=== PATIENT | male | born 1960 | race African-American/Black ===

== ENCOUNTER → 2018-07-14 | Outpatient (CLI) | payer OTHER ==
[2014-10-15 15:02] VITALS: BP 120/81
[~2018-07-14] MED LIST: Amoxicillin/Potassium Clav PO; CELE200C PO; CEPH-264 PO; CIPR500T94 PO; DOCU-109 PO; NAPR220T70 PO; OXYC1TAB15 PO; WARF-78 PO
--- NOTE | 2018-07-14 08:55 | RAD ---
Examination: Ultrasound left parotid History: History of left parotid mass COMPARISON: None available. Findings/ impression: There is a 1.6 x 1.3 x 1.3 cm hypoechogenic lesion identified in the left parotid region with minimal vascular flow within could be a left parotid solid mass or abnormal lymph node. Cross-sectional imaging with CT with IV contrast can be considered if clinically feasible for further evaluation. Electronically signed by: Jhonathan Cotter MD (07/14/2018 8:50 AM) [id number]
== END | disposition home or self-care (01) ==
LOC: US 07:10
PROVIDERS: ATTEND Nurse Practitioner Family
DX: K11.8 Other diseases of salivary glands (principal)
CPT/HCPCS: 76881

== ENCOUNTER 2018-08-30 07:05 | Outpatient (CLI) | payer OTHER ==
[~2018-08-30] VITALS: Ht 175.3 cm; Wt 95.3 kg
[2018-08-30 07:30] VITALS: BP 146/86
[2018-08-30 07:45] LABS: BASO # 0.1 x10^3/uL (0.0-0.2); BASO % 2 % (0-3); EOS # 0.2 x10^3/uL (0.0-0.7); EOS % 5 % (0-3); HEMATOCRIT 44.8 % (39.0-53.0); HEMOGLOBIN 14.8 g/dL (13.0-17.5); LYMPH # 0.9 x10^3/uL (1.0-4.8); LYMPH % 25 % (24-48); MEAN CORPUSCULAR HEMOGLOBIN 29 pg (25-35); MEAN CORPUSCULAR HGB CONC 33 g/dL (31-37); MEAN CORPUSCULAR VOLUME 87 fL (79-100); MONO # 0.3 x10^3/uL (0.0-1.1); MONO % 9 % (0-9); NEUT # 2.2 x10^3uL (1.8-7.7); NEUT % 60 % (31-73); PLATELET COUNT 205 x10^3/uL (140-400); RED BLOOD COUNT 5.15 x10^6/uL (4.30-5.70); WHITE BLOOD COUNT 3.7 x10^3/uL (4.0-11.0)
[2018-08-30 08:10] LABS: PROTHROMBIN TIME PATIENT 13.5 SEC (11.7-14.0)
[2018-08-30] MEDS ORDERED: LIDOCAINE WITH 8.4% SOD BICARB 3 ML DISP.SYRIN. ONE (08:20)
[2018-08-30] MEDS ORDERED: LIDOCAINE WITH 8.4% SOD BICARB 3 ML DISP.SYRIN. INJ ONE (08:45)
[2018-08-30 09:00] VITALS: BP 156/90
[2018-08-30 09:15] VITALS: BP 154/86
[2018-08-30 09:30] VITALS: BP 151/86
[2018-08-30 09:45] VITALS: BP 152/86
[2018-08-30] MEDS ORDERED: ACET325T9 PO (10:04)
--- NOTE | 2018-08-30 10:36 | NUR ---
Discharge Note: PONCE MARY Discharge instructions and discharge home medications reviewed with Spouse and a copy given. All questions have been answered and understanding verbalized. The following instructions and handouts were given: Needle biopsy care and signs and symptoms of infection. Discontinued lines and drains: right hand PIV, dressing clean dry intact. Patient discharged to home with via private vehicle. Discussed blood pressure and the need to follow up with PCP regarding blood pressure management. Patient and both verbalized understanding.
--- NOTE | 2018-08-31 11:54 | RAD ---
Ultrasound-guided biopsy, left parotid mass 08/30/2018 Indication: Left parotid mass Discussion: The risks and benefits of the procedure were discussed the patient. Informed consent was obtained. A timeout procedure was performed. Ultrasound evaluation demonstrates a round hypoechoic mass with some peripheral calcification the left parotid gland. Mass measures approximately 2 cm in maximal diameter. The overlying skin was prepped and draped using sterile barrier technique. 1% lidocaine was administered for local anesthesia. Under CT guidance fine-needle aspiration performed in 4 passes through the nodule. Scant cellularity noted by cardiopulmonary technologist present. A 20-gauge core biopsy sample was therefore obtained. Manual pressure was held. The patient tolerated the procedure without immediate complication. Impression: Fine-needle aspiration, and single 20-gauge core biopsy, left parotid mass
--- NOTE | 2018-08-31 16:07 | PATHOLOGY ---
[facility] Accession Number: [id number] . 01 Material submitted: . LEFT PAROTID MASS BIOPSY . 01 Clinical history: . Left parotid mass, FNA X4 passes . 02 Diagnosis: Left parotid mass, needle biopsies: - Pleomorphic adenoma. See comment. . (JPM:mm; 08/31/2018) [facility]/08/31/2018 . 02 Comment: Sections of the left parotid mass needle biopsy reveal segments of fibrous tissue and a benign parotid gland neoplasm. The latter is composed of bland epithelial cells which form tubules and are present in small nests and anastomosing strands within a myxochondroid stroma. The morphologic findings are supportive of the diagnosis of a pleomorphic adenoma. There is no evidence of malignancy within the biopsy. However, I cannot be certain wheher or not the findings are office machines sales representative of the entire lesion. Correlate clinically. . (JPM:mm; 08/31/2018) . 02 Electronically signed: . Braeden Jacob MD, Pathologist NPI- [id number] . 01 Gross description: . The specimen is received in formalin, labeled "Lucio Del Toro, left parotid", are two cat-white needle cores measuring 0.7 cm and 0.3 cm in length and less than 0.1 cm in diameter. The content of the container is filtered into a biopsy bag. All is submitted for microscopy as A1. ([facility]; 08/30/2018) [facility]S . 02 Pathologist provided ICD-10: D11.0 . 02 CPT . 377393 Specimen Comment: A courtesy copy of this report has been sent to Specimen Comment: [phone], , . Specimen Comment: Report sent to ,DR COSTA / DR PAT Performed at: [address] [facility] [address], [place], [place] [id number] MD Sy Sullivan MD Phone: [phone] Performed at: 02 [facility] [address] [place], [place] [id number] MD Braeden Jacob MD Phone: [phone]
--- NOTE | 2018-08-31 17:07 | PATHOLOGY ---
Note [facility] Accession Number: [id number] TESTS RESULT FLAG UNITS REF RANGE LAB Clinician Provided Cytology Information No. of containers..01 Other (Miscellaneous) Source: LT PAROTID MASS DIAGNOSIS: LT PAROTID MASS NEGATIVE FOR MALIGNANT CELLS. CLUSTERS OF BENIGN EPITHELIOD CELLS WITH FOCAL MYXOID STROMA SUSPICIOUS FOR PLEOMORPHIC ADENOMA. THIS EVALUATION INCLUDES EXAMINATION OF A CELL BLOCK. Signed out by: 02 Braeden Jacob MD, Pathologist NPI- [id number] Performed by: Lila Calhoun, Hot Strip Mill Inspector ([facility]) Gross description: 01 30ML, COLORLESS, CLOUDY /LCS FLAG LEGEND: L-Low Normal,H-High Normal,LL-Alert Low,HH-Alert High <-Panic Low,>-Panic High,A-Abnormal,AA-Critical Abnormal Performed at: [address] [place] [address] Sy Sullivan MD, 02 [facility] [address] [place] [address] Braeden Jacob MD, Specimen Comment: A courtesy copy of this report has been sent to Specimen Comment: [phone]. Specimen Comment: Report sent to Specimen Comment: A duplicate report has been generated due to demographic updates. Performed at: [address], [place], [place] [id number] MD Sy Sullivan MD Phone: [phone]
== END 2018-08-30 10:30 | disposition home or self-care (01) ==
LOC: INTRAD 07:05
PROVIDERS: ATTEND Nurse Practitioner Family
DX: D11.0 Benign neoplasm of parotid gland (principal); Z79.899 Other long term (current) drug therapy; Z79.01 Long term (current) use of anticoagulants
CPT/HCPCS: 10005; 36415; 42400; 76942; 85025; 85610; 88173; 88305

== ENCOUNTER 2018-10-04 08:19 | Emergency (ER) | payer OTHER ==
[~2018-10-04] VITALS: Ht 175.3 cm; Wt 95.7 kg
[~2018-10-04 08:19] MED LIST changes: +ACET325T9 PO
[2018-10-04 09:00] VITALS: BP 124/73
[2018-10-04] MEDS ORDERED: CYCLOBENZAPRINE 10 MG TABLET. PO ONE (10:00)
[2018-10-04] MEDS ORDERED: IBUPROFEN 400 MG TABLET. PO ONE (10:00)
[2018-10-04] MEDS ORDERED: CYCL10TA2 PO (10:02)
[2018-10-04] MEDS ORDERED: DICL50TA4 PO (10:02)
--- NOTE | 2018-10-04 10:02 | PHYS DOC ---
Past Medical History Past Medical History: Arthritis, Hypertension Past Surgical History: Knee Replacement Alcohol Use: None Drug Use: None Adult General Chief Complaint Chief Complaint: UPPER EXTREMITY PAIN HPI HPI Patient is a 58-year-old male who presents to the emergency department for evaluation. He states yesterday at work, at about 7 PM, he began experiencing some pain in the left side of his neck, radiating down towards his left shoulder and down his entire left arm. Movements of his neck, as well as elevating his left shoulder, seems to worsen his pain. He has not had any numbness or weakness, paresthesias, headache, or vision difficulties. He denies any chest pain or shortness of breath. He states he had a similar episode after abruptly turning his neck at work a few days ago, but states that with some rest that improved, but this episode since beginning yesterday evening and has been persistent. He does not have any definite discrete injury that he can attribute his current pain 2. Other than as stated above there are no alleviating or exacerbating factors to his symptoms. Review of Systems Review of Systems Constitutional: Denies fever or chills [] Eyes: Denies change in visual acuity, redness, or eye pain [] HENT: Denies nasal congestion or sore throat [] Respiratory: Denies cough or shortness of breath [] Cardiovascular: The patient denies any shortness of breath, chest pain, palpitations, or orthopnea[] GI: Denies abdominal pain, nausea, vomiting, bloody stools or diarrhea [] : Denies dysuria or hematuria [] Musculoskeletal: Denies back pain or joint pain, except as noted in the history of present illness [] Integument: Denies rash or skin lesions [] Neurologic: Denies headache, focal weakness or sensory changes [] Allergies Allergies Allergies Coded Allergies Type Severity Reaction Last Updated Verified No Known Drug Allergies 10/10/14 No Physical Exam Physical Exam PHYSICAL EXAM: CONSTITUTIONAL: Well developed, well nourished HEAD: normocephalic, atraumatic EENT: PERRL, EOMI. Conjunctivae normal color, sclerae non-icteric; moist mucous membranes. NECK: Supple, non-tender; no meningismus. There are no carotid bruits. LUNGS: Lungs CTA, breathing even and unlabored. Normal air movement. HEART: Regular rate and rhythm, no murmur CHEST: No deformity; non-tender ABDOMEN: The abdomen is soft, and non-tender, no masses or bruits. EXTREM: Normal ROM; no deformity, no calf tenderness. Normal pulses palpable in all extremities. There is no pedal edema. There is a strong left radial pulse. SKIN: No rash; no diaphoresis NEURO: Alert; normal speech and cognition; CN's grossly intact; strength grossly intact without focal deficit. 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 Symmetrical bilaterally. BACK: No CVA TTP. MUSCULOSKELETAL: There is mild tenderness to palpation of the musculature of the left lateral neck, trapezius, and left shoulder diffusely. Left shoulder is limited to about 50% of full secondary to pain, mostly in abduction, rotation is relatively nonpainful. Current Patient Data Vital Signs Vital Signs Date Time Temp Pulse Resp B/P (MAP) Pulse Ox O2 Delivery O2 Flow Rate FiO2 10/04/18 08:25 98.2 68 18 139/85 (103) 98 Room Air 98.2 EKG EKG Normal sinus rhythm at a rate of 59 beats for minute, left axis deviation, normal intervals. There are no acute ischemic ST/T changes.[] Radiology/Procedures Radiology/Procedures [] Course & Med Decision Making Course & Med Decision Making Patient's clinical symptoms are suggestive of a muscle strain, possibly in his neck or shoulder area. Radicular pain from a herniated disc is certainly on the differential as well. I will treat the patient initially conservatively with muscle relaxer and anti-inflammatory medication, I discussed importance of close follow-up, and possible need for imaging including an MRI of his cervical spine if symptoms persist, the need for close PCP follow-up, and return precautions . Medication precautions were discussed as well. Dragon Disclaimer Dragon Disclaimer This electronic medical record was generated, in whole or in part, using a voice recognition dictation system. Departure Departure Impression: Primary Impression: Cervical strain, acute Disposition: HOME, SELF-CARE Condition: STABLE Referrals: LEENA PAT MD (PCP) Patient Instructions: Cervical Radiculopathy, Cervical Sprain Additional Instructions: Applying ice to the affected area may help improve your symptoms. The prescribed medications may cause drowsiness-use caution while taking. Scripts Diclofenac Sodium (DICLOFENAC SODIUM) 50 Mg Tablet.dr 1 TAB PO BID, #20 TAB 0 Refills Prov: MERISSA NAYAK MD 10/04/18 Cyclobenzaprine Hcl (CYCLOBENZAPRINE HCL) 10 Mg Tablet 1 TAB PO TID PRN for PAIN, #30 TAB Prov: MERISSA NAYAK MD 10/04/18 MERISSA NAYAK MD October 04, 2018 10:02
--- NOTE | 2018-10-04 11:05 | EKG ---
[facility] [address] [place] [address] Test Date: 2018-10-04 Test Time: 08:56:01 Pat Name: PONCE MARY Department: Room: Gender: M Registered Nurse Float Pool: : [id number] Requested By: MERISSA NAYAK Order Number: [id number] Reading MD: Jose Martin Nelson Measurements Intervals [place] Rate: 59 P: 36 CA: 178 QRS: -24 QRSD: 92 T: 15 QT: 390 QTc: 390 Interpretive Statements SINUS RHYTHM LEFTWARD AXIS NONSPECIFIC ST-T WAVE CHANGES. Electronically Signed On 10-06-2018 9:52:25 CDT by Jose Martin Nelson
== END 2018-10-04 10:18 | disposition home or self-care (01) ==
LOC: ER 08:19
DX: S16.1XXA Strain of muscle, fascia and tendon at neck level, initial encounter (principal); M79.602 Pain in left arm; M25.512 Pain in left shoulder; M19.90 Unspecified osteoarthritis, unspecified site; I10 Essential (primary) hypertension; Z96.659 Presence of unspecified artificial knee joint; X58.XXXA Exposure to other specified factors, initial encounter; Y93.89 Activity, other specified; Y92.89 Other specified places as the place of occurrence of the external cause; Y99.0 Civilian activity done for income or pay
CPT/HCPCS: 93005; 99283